=== PATIENT | male | born 1940 | race Caucasian/White ===

== ENCOUNTER 2019-11-07 09:48 | Day surgery (SDC) | payer MEDICARE, OTHER ==
[~2019-11-07 09:48] MED LIST: Cefuroxime 10 MG/ML SYRINGE EYERT SCH; Lidocaine 1% PF 2 ML SDV INJECT SCH; Pilocarpine 4% Ophth Soln 15 ML Bot EYERT SCH
[2019-11-07] MEDS: Polymyxin B/Trimethoprim 10 ML Bottle EYERT SCH ×3 (10:40→12:45)
[2019-11-07] MEDS: Brimonidine 0.2% Ophth Soln 5 ML Bottle EYERT SCH ×3 (10:46→12:45)
[2019-11-07] MEDS: Phenylephrine 2.5% Ophth Soln 2 ML Bot EYERT SCH ×5 (10:53→12:17)
[2019-11-07] MEDS: Tropicamide 1% Ophth Soln 15 ML Bottle EYERT SCH ×4 (10:58→11:52)
[2019-11-07] MEDS: Tetracaine HCl/PF 0.5% 4 ML Bottle EYERT SCH ×2 (11:59→12:30)
--- NOTE | 2019-11-07 12:24 | PCM48HPAN ---
Post Anesthesia Note - EVALUATION WITHIN 48HRS OF ANESTHETIC Vital Signs in Normal Range: Yes Patient Participated in Evaluation: Yes Respiratory Function Stable: Yes Airway Patent: Yes Cardiovascular Function Stable: Yes Hydration Status Stable: Yes Pain Control Satisfactory: Yes Nausea and Vomiting Control Satisfactory: Yes Mental Status Recovered: Yes Vital Signs: Last Vital Signs Temp 36.3 C 11/07/19 10:27 Pulse 64 11/07/19 10:27 Resp 16 11/07/19 10:27 BP 161/83 H 11/07/19 10:27 Pulse Ox 96 11/07/19 10:27
[2019-11-07 13:02] VITALS: BP 150/83; PULSE 59
== END 2019-11-07 12:54 | disposition home or self-care (01) ==
LOC: JD.SDS 09:48
PROVIDERS: ATTEND Ophthalmology
DX: H25.811 Combined forms of age-related cataract, right eye (principal); H21.81 Floppy iris syndrome; H21.41 Pupillary membranes, right eye; H43.813 Vitreous degeneration, bilateral; H16.223 Keratoconjunctivitis sicca, not specified as Sjogren's, bilateral; H16.103 Unspecified superficial keratitis, bilateral; E78.00 Pure hypercholesterolemia, unspecified; M19.90 Unspecified osteoarthritis, unspecified site; Z96.1 Presence of intraocular lens; Z79.899 Other long term (current) drug therapy; Z91.018 Allergy to other foods
CPT/HCPCS: 66982; J0697; J2001; C1780

== ENCOUNTER 2020-04-20 14:59 | Emergency (ER) | payer MEDICARE, OTHER ==
[2020-04-20 15:21] VITALS: BP 165/84; PULSE 66
--- NOTE | 2020-04-20 16:13 | EDM.PDOC ---
ED HPI GENERAL MEDICAL PROBLEM - General Chief Complaint: Syncope Stated Complaint: SYNCOPE Time Seen by Provider: 04/20/20 15:55 Source of Information: Reports: Patient History Limitations: Reports: No Limitations - History of Present Illness INITIAL COMMENTS - FREE TEXT/NARRATIVE: 79-year-old male presents to the ED after suffering presumably a syncopal event at home. He states he was bending over weeding parts of his garden and backyard when he awoke on his left side on the ground.He believes he was unresponsive for less than 30 seconds. However there was no witnesses to the syncopal event. He has no recollection of how he got to the ground. He states for the last 2 years he has been experiencing dizzy episodes which have a component of vertigo or spinning off kilter sensation. He has never had a true syncopal event ever before. He is getting headaches on a daily basis. He is believes it is coming from his cervical spine. No associated nausea vomiting and his appetite remains good and his weight is stable. He never feels any palpitations or skipping or racing of his heart. He is on thyroid replacement hormone. He is also on medication for high cholesterol. His blood pressure has been elevated systolically over the last 4 to 6 months. It is usually in the 150s when he takes it at home. Once it was as high as 191. He is not on any antihypertensive medications. No known heart conditions. He is never felt any palpitations or racing heart. He states he does not feel any pain from syncopal event and landing on the ground. He reports that he has to get up slowly from a seated or lying down position as he will get dizzy. He is careful in this regard. Onset: Today (Event occurred today. But he has been feeling offkilter with gradually worsening headaches for the last 2 years.) Onset Date: 04/20/20 (Call event occurred today.) Onset Time: 15:05 Duration: Minutes: Location: Reports: Generalized (Very bouts of dizziness/vertigo symptoms.) Quality: Reports: Other (Recurrent bouts of dizziness lightheadedness with a syncopal event today.) Severity: Moderate Improves with: Reports: Rest Worsens with: Reports: Other Context: Denies: Activity (Empty him seem to occur with positional changes.), Exercise, Lifting, Sick Contact, Trauma, Other Associated Symptoms: Reports: No Other Symptoms Treatments APPLICATION DEVELOPMENT SPECIALIST: Reports: Other (see below) (1.) - Related Data Allergies Allergy/AdvReac Type Severity Reaction Status Date / Time No Known Allergies Allergy Verified 04/20/20 15:21 Home Meds: Home Meds Colchicine [Colcrys] 0.6 mg PO DAILY PRN 10/09/19 [History] Finasteride 5 mg PO DAILY 10/09/19 [History] Levothyroxine [Synthroid] 100 mcg PO DAILY 10/09/19 [History] Pantoprazole Sodium [Protonix] 40 mg PO DAILY 10/09/19 [History] Pitavastatin Calcium [Livalo] 2 mg PO DAILY 10/09/19 [History] Past Medical History HEENT History: Reports: Hard of Hearing Cardiovascular History: Reports: High Cholesterol Gastrointestinal History: Reports: Fatty Liver Genitourinary History: Reports: BPH (And is on finasteride for his prostate.) Musculoskeletal History: Reports: Arthritis, Gout (Ask colchicine daily.) Psychiatric History: Reports: Anxiety Endocrine/Metabolic History: Reports: Hypothyroidism - Past Surgical History Musculoskeletal Surgical History: Reports: Other (See Below) (She has had multiple shoulder surgeries. Bilateral rotator cuff repairs and he believes once for a fracture in the right shoulder.) Social & Family History - Tobacco Use Smoking Status *Q: Never Smoker - Caffeine Use Caffeine Use: Reports: Coffee - Recreational Drug Use Recreational Drug Use: No - Living Situation & Occupation Living situation: Reports: Occupation: Employed (Self-employed) ED ROS GENERAL - Review of Systems Review Of Systems: See Below Constitutional: Reports: Other (Is stable). Denies: Fever, Chills, Malaise, Weakness, Fatigue, Night Sweats HEENT: Reports: Glasses, Vertigo, Other (No humming ringing or buzzing in his ears. Is slowly losing his hearing.) Respiratory: Reports: No Symptoms Cardiovascular: Reports: No Symptoms Endocrine: Reports: Fatigue (She gets fatigued and plays out within 3 to 4 minutes where he would usually able to be work for hours.) GI/Abdominal: Reports: No Symptoms. Denies: Constipation, Diarrhea : Reports: Frequency, Other (Treated once or twice nightly on finasteride for his prostate) Musculoskeletal: Reports: No Symptoms Skin: Reports: No Symptoms Neurological: Reports: Dizziness, Headache, Syncope (Couple event occurred today see history of present illness). Denies: Confusion, Numbness, Tingling ( Almost every day he is getting a headache. He believes is coming from his neck. ), Trouble Speaking, Difficulty Walking, Change in Speech, Gait Disturbance Psychiatric: Reports: No Symptoms Hematologic/Lymphatic: Reports: No Symptoms Immunologic: Reports: No Symptoms - Physical Exam Exam: See Below Exam Limited By: No Limitations General Appearance: Alert, WD/WN, No Apparent Distress, Other (Temperature is 36.0. Pulse is 66 in sinus respiratory to 20 BP is 1 6584 but came down to 145/ 82. Pulse ox 98% on room air.) Eye Exam: Bilateral Eye: Normal Inspection, PERRL Throat/Mouth: Normal Inspection, Normal Lips, Normal Teeth, Normal Oropharynx Head Exam: Atraumatic, Normocephalic Neck: Normal Inspection, Limited Range of Motion (Some crepitus on lateral rotation of his cervical spine with limits of range of motion with loss of 5 degrees flexion 10 degrees extension and 10 degrees lateral flexion bilaterally. ). No: Carotid Bruit, Lymphadenopathy (L), Lymphadenopathy (R), Thyromegaly Respiratory/Chest: No Respiratory Distress, Lungs Clear, Normal Breath Sounds, No Accessory Muscle Use, Chest Non-Tender Cardiovascular: Normal Peripheral Pulses, Regular Rate, Rhythm, No Edema, No Murmur, No Rub GI/Abdominal: Normal Bowel Sounds, Soft, Non-Tender, No Organomegaly, No Abnormal Bruit, Other (No surgical scars.) Neuro Exam (Abbreviated): Alert, Oriented, CN II-XII Intact, Normal Cognition, Normal Gait, Abnormal Reflexes (Patient is areflexic he is areflexic.), Other ( No pronator drift. [id number] assessment was normal. Rapid alternating movements are normal). No: Slow to Respond, Unresponsive DTR: 0: Bicep (R), Bicep (L), Patella (R), Patella (L), Achilles (R), Achilles ( L) Back Exam: Normal Inspection, Full Range of Motion. No: CVA Tenderness (L), CVA Tenderness (R) Extremities: Normal Inspection, Normal Range of Motion, Non-Tender, No Pedal Edema Psychiatric: Normal Affect, Normal Mood Skin Exam: Warm, Dry, Intact, Normal Color, No Rash EKG INTERPRETATION EKG Date: 04/20/20 Time: 16:40 Rhythm: Other (Sinus bradycardia at 56/min) Rate (Beats/Min): 56 [place]: Normal P-Wave: Present QRS: Other (Mildly decreased voltage precordial leads.) ST-T: Normal QT: Normal Course - Vital Signs Last Recorded V/S: Last Vital Signs Temp 36.0 C L 04/20/20 15:16 Pulse 66 04/20/20 15:16 Resp 20 04/20/20 15:16 BP 165/84 H 04/20/20 15:16 Pulse Ox 98 04/20/20 15:16 Orthostatic Blood Pressure [ 177/86 Standing] Orthostatic Blood Pressure [ 162/84 Sitting] Orthostatic Blood Pressure [ 171/73 Supine] - Orders/Labs/Meds Orders: Active Orders 24 hr Category Date Time Status EKG Documentation Completion [RC] STAT Care 04/20/20 16:11 Active Holter Monitor 48 Hours [RC] .PRN Care 04/20/20 18:03 Active Orthostatic Vital Signs [RC] ASDIRECTED Care 04/20/20 17:17 Active Labs: Laboratory Tests 04/20/20 04/20/20 04/20/20 Range/Units 16:32 16:32 16:32 WBC 5.16 (4.23-9.07) K/mm3 RBC 4.56 L (4.63-6.08) M/mm3 Hgb 13.9 (13.7-17.5) gm/dl Hct 42.1 (40.1-51.0) % MCV 92.3 H (79.0-92.2) fl MCH 30.5 (25.7-32.2) pg MCHC 33.0 (32.2-35.5) g/dl RDW Std Deviation 43.1 (35.1-43.9) fL Plt Count 181 (163-337) K/mm3 MPV 10.0 (9.4-12.3) fl Neut % (Auto) 58.5 (34.0-67.9) % Lymph % (Auto) 27.1 (21.8-53.1) % [place] % (Auto) 10.9 (5.3-12.2) % Eos % (Auto) 2.7 (0.8-7.0) Baso % (Auto) 0.4 (0.1-1.2) % Neut # (Auto) 3.02 (1.78-5.38) K/mm3 Lymph # (Auto) 1.40 (1.32-3.57) K/mm3 [place] # (Auto) 0.56 (0.30-0.82) K/mm3 Eos # (Auto) 0.14 (0.04-0.54) K/mm3 Baso # (Auto) 0.02 (0.01-0.08) K/mm3 ESR 22 H (0-15) mm/hr Sodium 143 (136-145) mEq/L Potassium 3.8 (3.5-5.1) mEq/L Chloride 109 H (98-107) mEq/L Carbon Dioxide 26 (21-32) mEq/L Anion Gap 11.8 (5-15) BUN 23 H (7-18) mg/dL Creatinine 1.6 H (0.7-1.3) mg/dL Est Cr Clr Drug Dosing 33.63 mL/min Estimated GFR (MDRD) 42 (>60) mL/min BUN/Creatinine Ratio 14.4 (14-18) Glucose 99 (83-115) mg/dL Calcium 8.9 (8.5-10.1) mg/dL Magnesium 2.2 (1.8-2.4) mg/dl Total Bilirubin 0.9 (0.2-1.0) mg/dL AST 28 (15-37) U/L ALT 34 (16-63) U/L Alkaline Phosphatase 63 (46-116) U/L Troponin I < 0.017 (0.00-0.056) ng/mL C-Reactive Protein <0.2 (<1.0) mg/dL NT-Pro-B Natriuret Pep (0-450) pg/mL Total Protein 7.0 (6.4-8.2) g/dl Albumin 3.3 L (3.4-5.0) g/dl Globulin 3.7 gm/dL Albumin/Globulin Ratio 0.9 L (1-2) TSH 3rd Generation 1.721 (0.358-3.74) uIU/mL Urine Color (Yellow) Urine Appearance (Clear) Urine pH (5.0-8.0) Ur Specific [place] (1.005-1.030) Urine Protein (Negative) Urine Glucose (UA) (Negative) Urine Ketones (Negative) Urine Occult Blood (Negative) Urine Nitrite (Negative) Urine Bilirubin (Negative) Urine Urobilinogen (0.2-1.0) Ur Leukocyte Esterase (Negative) Urine RBC (0-5) /hpf Urine WBC (0-5) /hpf Ur Squamous Epith Cells (0-5) /hpf Urine Bacteria (FEW) /hpf Urine Mucus (FEW) /hpf 04/20/20 04/20/20 Range/Units 16:32 16:35 WBC (4.23-9.07) K/mm3 RBC (4.63-6.08) M/mm3 Hgb (13.7-17.5) gm/dl Hct (40.1-51.0) % MCV (79.0-92.2) fl MCH (25.7-32.2) pg MCHC (32.2-35.5) g/dl RDW Std Deviation (35.1-43.9) fL Plt Count (163-337) K/mm3 MPV (9.4-12.3) fl Neut % (Auto) (34.0-67.9) % Lymph % (Auto) (21.8-53.1) % [place] % (Auto) (5.3-12.2) % Eos % (Auto) (0.8-7.0) Baso % (Auto) (0.1-1.2) % Neut # (Auto) (1.78-5.38) K/mm3 Lymph # (Auto) (1.32-3.57) K/mm3 [place] # (Auto) (0.30-0.82) K/mm3 Eos # (Auto) (0.04-0.54) K/mm3 Baso # (Auto) (0.01-0.08) K/mm3 ESR (0-15) mm/hr Sodium (136-145) mEq/L Potassium (3.5-5.1) mEq/L Chloride (98-107) mEq/L Carbon Dioxide (21-32) mEq/L Anion Gap (5-15) BUN (7-18) mg/dL Creatinine (0.7-1.3) mg/dL Est Cr Clr Drug Dosing mL/min Estimated GFR (MDRD) (>60) mL/min BUN/Creatinine Ratio (14-18) Glucose (83-115) mg/dL Calcium (8.5-10.1) mg/dL Magnesium (1.8-2.4) mg/dl Total Bilirubin (0.2-1.0) mg/dL AST (15-37) U/L ALT (16-63) U/L Alkaline Phosphatase (46-116) U/L Troponin I (0.00-0.056) ng/mL C-Reactive Protein (<1.0) mg/dL NT-Pro-B Natriuret Pep 154 (0-450) pg/mL Total Protein (6.4-8.2) g/dl Albumin (3.4-5.0) g/dl Globulin gm/dL Albumin/Globulin Ratio (1-2) TSH 3rd Generation (0.358-3.74) uIU/mL Urine Color Yellow (Yellow) Urine Appearance Clear (Clear) Urine pH 6.0 (5.0-8.0) Ur Specific [place] > or = 1.030 (1.005-1.030) Urine Protein Negative (Negative) Urine Glucose (UA) Negative (Negative) Urine Ketones Negative (Negative) Urine Occult Blood Negative (Negative) Urine Nitrite Negative (Negative) Urine Bilirubin Negative (Negative) Urine Urobilinogen 0.2 (0.2-1.0) Ur Leukocyte Esterase Negative (Negative) Urine RBC 0-5 (0-5) /hpf Urine WBC 0-5 (0-5) /hpf Ur Squamous Epith Cells 0-5 (0-5) /hpf Urine Bacteria Few (FEW) /hpf Urine Mucus Not seen (FEW) /hpf - Radiology Interpretation Free Text/Narrative:: 79-year-old male presents to the ED with a 2-year history of intermittent dizziness lightheadedness episodes which culminated in a syncopal episode today. He was bending over picking weeds out of his backyard when he found himself lying on his left side on the grass. He did not get hurt from the syncopal event. He just can remember how long he was out for but he believes was for very short duration of time. He has no cardiac history of arrhythmias. He never feels any palpitations or skips or racing heart. He has hypothyroid. He is also on finasteride and alpha lonny which may be causing sudden changes in blood pressure. Does appear to be mildly systolically hypertensive. Neuro exam is completely normal. He indicates that he is getting a headache almost every day which he blames on his cervical spine. He is aware that he has to get up carefully from the bed or his couch when he stands as he gets a little bit dizzy. Plan CT head to be done to rule out acoustic neuroma since he is losing some hearing and many symptoms of vertigo. ECG to be done. Routine labs including thyroid function as he is on thyroid replacement hormone. He reports that he simply has no energy. When he goes to work he can last an hour or so and then his plate out. Usually can work all day long and then still have energy to exercise. - Re-Assessments/Exams Free Text/Narrative Re-Assessment/Exam: 04/20/20 17:17 CT of the head has been completed. Ventricles along with basal cisterns and sulci over the convexities are mildly prominent consistent with the patient's age. Diminished density is noted within the periventricular white matter combined with small vessel ischemic demyelination changes. No other abnormal parenchymal densities are seen. No evidence of intracranial hemorrhage no midline shift or mass-effect is identified. Visualized mastoid sinuses and paranasal sinuses showed nothing acute. Orthostatic BPs show a supine blood pressure 1 7173 with a heart rate of 62. Sitting BP 162/84 with a heart rate of 61. Standing BP 177/86 with a heart rate of 65. No evidence of orthostasis. 04/20/20 17:22 Labs are back. White count is normal at 5.16. Auto differential shows 58.5% neutrophils. Hemoglobin is 13.9 with hematocrit of 42.1. Platelet counts 181,000. Sodium 143 with a potassium of 3.8. Chloride 109 with a bicarb of 26. Anion gap is 11.8. BUN is 23 with a creatinine of 1.6. Estimated GFR is 42. Glucose is 99 with a calcium of 8.9. Magnesium is 2.2 bilirubin is 0.9 liver function otherwise normal troponin I is less than 0.017. C-reactive protein less than 0.2. BNP is 154. Total protein 7.0 with an albumin fraction of 3.3. Urinalysis is completely normal. TSH is pending 04/20/20 18:03 TSH came back normal at 1.72 ESR is 22--mildy elevated. Plan I am going to have a Holter monitor placed for 48 hours to see if there is any bradyarrhythmias that would make him have a syncopal event. Of asked him to put his cholesterol-lowering medication on hold for a month to see if this improves his stamina and muscle strength since he seems to be very weak on minimal exertion which is totally atypical for him. I could not identify any specific reason for him to have a syncopal event. He does take his finasteride in the mornings. I have asked him to switch this to bedtime use in case the alpha blockade is causing transient hypotension. Blood pressure in the ED was elevated minimally around 145-150 systolically and it appears that he may well need a another antihypertensive medication such as an CARLEE or an ARB to control his blood pressure. To follow-up with Dr. Woodruff in clinic 3 days after the Holter monitor has been turned back in for analysis. Does have a component of vertigo but this should never result in a loss of consciousness. Departure - Departure Time of Disposition: 18:15 Disposition: Home, Self-Care 01 Condition: Fair Clinical Impression: Essential hypertension with goal blood pressure less than 140/90, Elevated blood pressure reading with diagnosis of hypertension Syncopal episodes Qualifiers: Syncope type: unspecified Qualified Code(s): R55 - Syncope and collapse - Discharge Information *PRESCRIPTION DRUG MONITORING PROGRAM REVIEWED*: Not Applicable *COPY OF PRESCRIPTION DRUG MONITORING REPORT IN PATIENT REID: Not Applicable Instructions: Syncope, [id number] Referrals: Nguyễn Osborn MD [Primary Care Provider] - Forms: ED Department Discharge Additional Instructions: Evaluation in the emergency room today in regards to a syncopal event that occurred in your backyard at home today. As you indicated you have not felt well for about 23 months where you experience transient dizziness/vertigo episodes but have never fainted before. As you indicated today were bent over picking weeds in the backyard when you awoke lying on your left side in the grass. Is unclear for how long you lost consciousness but it was likely very transient. No source or reason could be identified for this to have occurred well in the emergency room. In particular there was no arrhythmias or abnormalities on your ECG when you were monitored in the ED. CT of the brain is completely normal showing no lesions that would cause you to have a syncopal event. Thyroid function is okay at this time and you on appropriate amount of supplementation. I am going to suggest that you place your cholesterol lowering pill Livalo on hold for the next month and see if this does not improve your muscle function and stamina. Also I am going to suggest you switch your finasteride or Flomax tablet to bedtime or after supper use so that the blood pressure lowering effect does not occur during the daytime in case it is causing transient lower blood pressure. However overall your blood pressure is slightly elevated while in the emergency department and I suspect you are going to need further blood pressure control with alternative medication but I will leave this up to Dr. Osborn. Please make an appointment to see Dr. Osborn 3 days after your Holter monitor is turned in as evaluation of the monitor should be available at that time likely about next week Monday. Of course return to the ED if you have any further similar events. Sepsis Event Note - Evaluation Sepsis Screening Result: No Definite Risk - Focused Exam Vital Signs: Vital Signs Temp Pulse Resp BP Pulse Ox 04/20/20 15:16 36.0 C L 66 20 165/84 H 98 Date Exam was Performed: 04/20/20 Time Exam was Performed: 18:22 - My Orders Last 24 Hours: My Active Orders 04/20/20 16:11 EKG Documentation Completion [RC] STAT 04/20/20 17:17 Orthostatic Vital Signs [RC] ASDIRECTED 04/20/20 18:03 Holter Monitor 48 Hours [RC] .PRN - Assessment/Plan Last 24 Hours: My Active Orders 04/20/20 16:11 EKG Documentation Completion [RC] STAT 04/20/20 17:17 Orthostatic Vital Signs [RC] ASDIRECTED 04/20/20 18:03 Holter Monitor 48 Hours [RC] .PRN
--- NOTE | 2020-04-20 16:53 | CT ---
Head CT Technique: Multiple axial sections through the brain were obtained. Intravenous contrast was not utilized. Comparison: Prior head CT study of 02/04/15. Findings: Ventricles along with basal cisterns and sulci over the convexities are mildly prominent. Diminished density is noted within the periventricular white matter compatible with small vessel ischemic demyelination change. No other abnormal parenchymal densities are seen. No evidence of intracranial hemorrhage. No midline shift or mass-effect is seen. Bone window settings were reviewed. No acute calvarial finding is seen. Visualized mastoid sinuses and paranasal sinuses show nothing acute. Impression: 1. Senescent change as described above. 2. No acute intracranial abnormality is appreciated. Diagnostic code #2 This report was dictated in MDT
== END 2020-04-20 18:28 | disposition home or self-care (01) ==
LOC: JD.ED 14:59
DX: I10 Essential (primary) hypertension (principal); E03.9 Hypothyroidism, unspecified; E78.00 Pure hypercholesterolemia, unspecified; N40.0 Benign prostatic hyperplasia without lower urinary tract symptoms; M10.9 Gout, unspecified; Z79.899 Other long term (current) drug therapy
CPT/HCPCS: 36415; 70450; 70450-26; 80053; 81001; 83735; 83880; 84443; 84484; 85025; 85652; 86140; 93005; 93010; 93225; 93226; 99283; 99284-25

== ENCOUNTER 2021-06-11 14:43 | Emergency (ER) | payer MEDICARE, OTHER ==
[2021-06-11 14:55] VITALS: BP 152/80; PULSE 66
[2021-06-11] MEDS ORDERED: Sodium Chloride 0.9% 1,000 ML IV ONE (15:21)
--- NOTE | 2021-06-11 15:21 | EDM.PDOC ---
ED HPI GENERAL MEDICAL PROBLEM - General Chief Complaint: Neuro Symptoms/Deficits Stated Complaint: DIZZY X4 days Time Seen by Provider: 06/11/21 15:01 Source of Information: Reports: Patient, Old Records, RN Notes Reviewed History Limitations: Reports: No Limitations - History of Present Illness INITIAL COMMENTS - FREE TEXT/NARRATIVE: Patient is a 80-year-old male who presents to the ER for his ongoing dizziness. Patient states this has been ongoing for the last for 5 days, he gets sporadic episodes of feeling unsteady on his feet. Noticed it about 4 days ago, when he was taking a walk, about a half a [address] from his house, when he began to feel exquisitely dizzy. States he did not have a fall, or pass out or any syncopal issues. He does have a history of MS as well but notes that his provider in [place] has been watching his disease closely and has not noticed any changes. He has not been started on any recent medications nor has he had any recent med changes. Denying any other sick-like symptoms fevers or chills, cough/shortness of breath, nausea/vomiting/diarrhea. Patient states that he has been having issues with ongoing fatigue, states that when he sits down in the easy chair, he can nod off in about [address] Osborn. Patient denies any sort of lightheaded feeling, or major positional changes, he states that when he is walking he just feels like he is off kilter. - Related Data Allergies Allergy/AdvReac Type Severity Reaction Status Date / Time No Known Allergies Allergy Verified 06/11/21 14:55 Home Meds: Home Meds Colchicine [Colcrys] 0.6 mg PO DAILY PRN 10/09/19 [History] Finasteride 5 mg PO DAILY 10/09/19 [History] Levothyroxine [Synthroid] 100 mcg PO DAILY 10/09/19 [History] Pantoprazole Sodium [Protonix] 40 mg PO DAILY 10/09/19 [History] Pitavastatin Calcium [Livalo] 2 mg PO DAILY 10/09/19 [History] Past Medical History HEENT History: Reports: Hard of Hearing, Other (See Below) Other HEENT History: dizziness Cardiovascular History: Reports: High Cholesterol Gastrointestinal History: Reports: Fatty Liver, GERD Genitourinary History: Reports: BPH Musculoskeletal History: Reports: Arthritis, Gout Neurological History: Reports: MS Psychiatric History: Reports: Anxiety Endocrine/Metabolic History: Reports: Hypothyroidism - Past Surgical History Musculoskeletal Surgical History: Reports: Other (See Below) (He has had multiple shoulder surgeries. Bilateral rotator cuff repairs and he believes once for a fracture in the right shoulder.) Social & Family History - Tobacco Use Tobacco Use Status *Q: Never Tobacco User - Caffeine Use Caffeine Use: Reports: None - Recreational Drug Use Recreational Drug Use: No - Living Situation & Occupation Living situation: Reports: Occupation: Employed (Self-employed) ED ROS GENERAL - Review of Systems Review Of Systems: Comprehensive ROS is negative, except as noted in HPI. ED EXAM, NEURO - Physical Exam Exam: See Below Exam Limited By: No Limitations General Appearance: Alert, WD/WN, No Apparent Distress Eye Exam: Bilateral Eye: EOMI, Normal Inspection, PERRL Respiratory/Chest: No Respiratory Distress, Lungs Clear, Normal Breath Sounds, No Accessory Muscle Use, Chest Non-Tender Cardiovascular: Normal Peripheral Pulses, Regular Rate, Rhythm, No Edema GI/Abdominal: Normal Bowel Sounds, Soft, Non-Tender, No Distention, No Mass Neurological: Alert, Normal Mood/Affect, CN II-XII Intact (grossly), No Motor/Sensory Deficits, Oriented x 3 Extremities: Normal Inspection, Normal Capillary Refill Psychiatric: Normal Affect, Normal Mood Skin Exam: Warm, Dry, Intact, Normal Color, No Rash Course - Vital Signs Last Recorded V/S: Last Vital Signs Temp 96.2 F L 06/11/21 14:52 Pulse 66 06/11/21 14:52 Resp 16 06/11/21 14:52 BP 152/80 H 06/11/21 14:52 Pulse Ox 99 06/11/21 14:52 - Orders/Labs/Meds Labs: Laboratory Tests 06/11/21 06/11/21 Range/Units 14:54 14:54 WBC 4.95 (4.23-9.07) K/mm3 RBC 4.58 L (4.63-6.08) M/mm3 Hgb 14.3 (13.7-17.5) gm/dl Hct 41.8 (40.1-51.0) % MCV 91.3 (79.0-92.2) fl MCH 31.2 (25.7-32.2) pg MCHC 34.2 (32.2-35.5) g/dl RDW Std Deviation 43.5 (35.1-43.9) fL Plt Count 180 (163-337) K/mm3 MPV 9.9 (9.4-12.3) fl Neut % (Auto) 55.2 (34.0-67.9) % Lymph % (Auto) 27.7 (21.8-53.1) % Walker % (Auto) 12.5 H (5.3-12.2) % Eos % (Auto) 3.6 (0.8-7.0) Baso % (Auto) 0.6 (0.1-1.2) % Neut # (Auto) 2.73 (1.78-5.38) K/mm3 Lymph # (Auto) 1.37 (1.32-3.57) K/mm3 Walker # (Auto) 0.62 (0.30-0.82) K/mm3 Eos # (Auto) 0.18 (0.04-0.54) K/mm3 Baso # (Auto) 0.03 (0.01-0.08) K/mm3 Sodium 142 (136-145) mEq/L Potassium 3.9 (3.5-5.1) mEq/L Chloride 109 H (98-107) mEq/L Carbon Dioxide 25 (21-32) mEq/L Anion Gap 11.9 (5-15) BUN 23 H (7-18) mg/dL Creatinine 1.6 H (0.7-1.3) mg/dL Est Cr Clr Drug Dosing 33.10 mL/min Estimated GFR (MDRD) 42 (>60) mL/min BUN/Creatinine Ratio 14.4 (14-18) Glucose 116 H (70-99) mg/dL Calcium 8.5 (8.5-10.1) mg/dL Total Bilirubin 0.9 (0.2-1.0) mg/dL AST 30 (15-37) U/L ALT 43 (16-63) U/L Alkaline Phosphatase 63 (46-116) U/L Total Protein 7.2 (6.4-8.2) g/dl Albumin 3.4 (3.4-5.0) g/dl Globulin 3.8 gm/dL Albumin/Globulin Ratio 0.9 L (1-2) Meds: Medications Discontinued Medications Generic Name Dose Route Start Last Admin Trade Name Omar PRN Reason Stop Dose Admin Sodium Chloride 1,000 mls @ 999 mls/hr 06/11/21 15:21 06/11/21 15:31 Normal Saline IV 06/11/21 16:21 999 mls/hr ONETIME ONE Administration Meclizine HCl 25 mg 06/11/21 15:22 06/11/21 15:31 Meclizine 25 Mg Tab.Chew PO 06/11/21 15:23 25 mg ONETIME ONE Administration - Re-Assessments/Exams Free Text/Narrative Re-Assessment/Exam: 06/11/21 15:22 Patient presents to the ER for evaluation of his dizziness, this has happened to the gentleman before a few years ago, and he did have a syncopal episode last year with similar symptoms. We had gotten an IV started at the time of triage, and I will order basic labs, we will go ahead and give him some IV fluids, and try a dose of oral meclizine to see if this helps his unsteady feelings. 06/11/21 15:32 Patient's labs have resulted, and are fairly unremarkable, creatinine is 1.6, GFR is 42, which seems to be on par for labs as compared to last year. None theless we will go ahead and give a bolus of fluids and try meclizine as stated above to see if this helps a little bit we will go ahead and get him up and walking after fluids and meclizine to see if this helps. 06/11/21 16:17 Patient was reassessed at bedside, states he is not move much, so he is not sure if he is feeling much better. We will have nursing staff ambulate him around the ER to see if this helps relieve some of his dizziness or unsteady feelings. Departure - Departure Time of Disposition: 16:17 Disposition: Home, Self-Care 01 Condition: Good Clinical Impression: Dizziness of unknown etiology - Discharge Information *PRESCRIPTION DRUG MONITORING PROGRAM REVIEWED*: No *COPY OF PRESCRIPTION DRUG MONITORING REPORT IN PATIENT REID: No Instructions: Dizziness, [id number] Referrals: Nguyễn Osborn MD [Primary Care Provider] - Forms: ED Department Discharge Additional Instructions: You were evaluated in the ER today for your unsteadiness/dizziness. Laboratory evaluation done at today's visit was unremarkable. There is no specific trigger identified at today's visit as to what would be causing your dizziness/unsteadiness. It is thought likely due to slight dehydration. Please try to increase your oral fluid intake, with fluids like Gatorade/Powerade or Pedialyte for ongoing management. When you are walking around, please get up slowly to help acclimate your body to the positional changes, and walk around a little more slowly, until you feel more steady and the dizziness improved. Highly suggest use of a cane, or walker over the next few days as well, if you are feeling unsteady on her feet, to prevent any falls. You may try low-dose meclizine or Antivert, this is a medication that can be bought [id number], as typically by the [facility] and the medication area. Recommend you take 1/2-1 full tablet every 4 hours as needed for ongoing dizziness symptoms. When it is extremely hot outside, please try to limit time outdoors to help further provide relief from too much water loss or dehydration. Recommend you follow-up with your regular care provider as needed for ongoing management of your general health. As always do not hesitate to return to the ER at any time if your symptoms should change or worsen. Sepsis Event Note (ED) - Evaluation Sepsis Screening Result: No Definite Risk - Focused Exam Vital Signs: Vital Signs Temp Pulse Resp BP Pulse Ox 06/11/21 14:52 96.2 F L 66 16 152/80 H 99
== END 2021-06-11 16:32 | disposition home or self-care (01) ==
LOC: JD.ED 14:43
DX: R42 Dizziness and giddiness (principal); E78.00 Pure hypercholesterolemia, unspecified; K21.9 Gastro-esophageal reflux disease without esophagitis; E03.9 Hypothyroidism, unspecified; Z79.899 Other long term (current) drug therapy
CPT/HCPCS: 36415; 80053; 85025; 99284; A9270; J7030; 99283

== ENCOUNTER 2021-08-09 08:22 | Emergency (ER) | payer MEDICARE, OTHER ==
[2021-08-09 09:00] VITALS: BP 138/70; PULSE 64
--- NOTE | 2021-08-09 09:03 | EDM.PDOC ---
ED HPI GENERAL MEDICAL PROBLEM - General Chief Complaint: Upper Extremity Injury/Pain Stated Complaint: RIGHT HAND FINGERS TINGLING Time Seen by Provider: 08/09/21 09:03 Source of Information: Reports: Patient History Limitations: Reports: No Limitations - History of Present Illness INITIAL COMMENTS - FREE TEXT/NARRATIVE: 81-year-old male attends the ED with complaints of weakness and pain in his right upper extremity. He identifies that clenching his fist causes pain in the lateral aspect of his elbow and its painful to lift the arm as well. He appreciates numbness and tingling in his hand particular in the distribution of the third and second fingertips. He has a positive Tinel's sign and has heard about carpal tunnel syndrome before. No recent injuries or falls. He was concerned about possibility of stroke causing his numbness and tingling and weakness. Onset: Gradual Onset Date: 07/30/21 (Has had symptoms of right wrist arm pain for about 10 days) Duration: Day(s):, Getting Worse Location: Reports: Upper Extremity, Right (Pain right lateral elbow), Other (. Numbness and tingling in the distribution of the median nerve right hand particular involving the second and third digits) Quality: Reports: Ache (Ache primarily right lateral elbow) Severity: Moderate Improves with: Reports: None Worsens with: Reports: Other (Worsens with clenching his fist and pushing himself up from a surface such as his bed.) Context: Reports: Other (Spontaneous occurrence). Denies: Activity, Exercise, Lifting, Sick Contact, Trauma Associated Symptoms: Reports: No Other Symptoms. Denies: Confusion, Chest Pain, Cough, cough w sputum, Diaphoresis, Fever/Chills, Headaches, Loss of Appetite, Malaise, Nausea/Vomiting, Seizure, Shortness of Breath, Syncope Treatments ENGINE SETTER: Reports: Other (see below) Right Elbow Pain Score (Numeric/FACES): 2 - Related Data Allergies Allergy/AdvReac Type Severity Reaction Status Date / Time No Known Allergies Allergy Verified 08/09/21 09:00 Home Meds: Home Meds Colchicine [Colcrys] 0.6 mg PO DAILY PRN 10/09/19 [History] Finasteride 5 mg PO DAILY 10/09/19 [History] Levothyroxine [Synthroid] 100 mcg PO DAILY 10/09/19 [History] Pantoprazole Sodium [Protonix] 40 mg PO DAILY 10/09/19 [History] Pitavastatin Calcium [Livalo] 1 mg PO DAILY 10/09/19 [History] Diclofenac Sodium [Voltaren] 50 mg PO BID #24 tab.ec 08/09/21 [Rx] predniSONE 20 mg PO ASDIRECTED #15 tab 08/09/21 [Rx] Past Medical History HEENT History: Reports: Hard of Hearing, Other (See Below) Other HEENT History: dizziness Cardiovascular History: Reports: High Cholesterol Gastrointestinal History: Reports: Fatty Liver, GERD Genitourinary History: Reports: BPH Musculoskeletal History: Reports: Arthritis, Gout Neurological History: Reports: MS Psychiatric History: Reports: Anxiety Endocrine/Metabolic History: Reports: Hypothyroidism - Past Surgical History Musculoskeletal Surgical History: Reports: Other (See Below) (He has had multiple shoulder surgeries. Bilateral rotator cuff repairs and he believes once for a fracture in the right shoulder.) Social & Family History - Caffeine Use Caffeine Use: Reports: None - Living Situation & Occupation Living situation: Reports: Occupation: Employed (Self-employed) Review of Systems - Review of Systems Review Of Systems: See Below Constitutional: Reports: No Symptoms Eyes: Reports: Glasses Ears: Reports: No Symptoms Nose: Reports: No Symptoms Mouth/Throat: Reports: No Symptoms Respiratory: Reports: No Symptoms Cardiovascular: Reports: No Symptoms GI/Abdominal: Reports: No Symptoms Genitourinary: Reports: Other (Nocturia x3. Urinary frequency) Musculoskeletal: Reports: Joint Pain (Mild joint pain shoulders neck low back and knees) Skin: Reports: No Symptoms Neurological: Reports: Numbness (Right wrist and second and third fingers comply with carpal tunnel syndrome), Tingling (Right hand). Denies: Confusion, Dizziness, Headache Psychiatric: Reports: No Symptoms ED EXAM, GENERAL - Physical Exam Exam: See Below Exam Limited By: No Limitations General Appearance: Alert, WD/WN, Anxious, Mild Distress, Other (Temperature is 36.0 with heart rate 64 and sinus. Respiratory 16 BP 138/70 O2 sats 98% room air) Peripheral Pulses: 2+: Radial (L), Radial (R) Extremities: No Pedal Edema, Other (Examination of his right upper extremity reveals pain over the lateral epicondyles combined with tennis elbow. He has a positive Tinel's sign at his right wrist compared with carpal tunnel syndrome. He therefore has 2 problems causing numbness and weakness in his right upper extremity. ). No: Pedal Edema Neurological: Alert, Oriented, CN II-XII Intact, Normal Cognition, Normal Gait, Sensory/Motor Deficit (Sensory deficit involving the distribution of the right median nerve particular involving his second and third fingers compared with carpal tunnel syndrome) Psychiatric: Normal Affect, Normal Mood Skin Exam: Warm, Dry, Intact, Normal Color, No Rash Course - Vital Signs Last Recorded V/S: Last Vital Signs Temp 36.0 C L 08/09/21 08:56 Pulse 64 08/09/21 08:56 Resp 16 08/09/21 08:56 BP 138/70 08/09/21 08:56 Pulse Ox 98 08/09/21 08:56 - Radiology Interpretation Free Text/Narrative:: 81-year-old male presents to the ED for evaluation of right upper extremity numbness tingling and weakness. It has been going on for about 10 days. 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 He also has evidence of carpal tunnel syndrome causing numbness and tingling in his right hand with a positive Tinel's sign. I am going to treat him with prednisone 20 mg by mouth twice daily for 5 days with meals then once daily in the morning for another 5 days. Also Voltaren 50 mg twice daily morning and supper for 12 days to relieve pain and inflammation. He is already on Protonix 40 mg daily for GI protection. Advised follow-up with Dr. Thao orthopedic surgeon whom he has seen many times in the past. Departure - Departure Time of Disposition: 09:33 Disposition: Home, Self-Care 01 Condition: Fair Clinical Impression: Carpal tunnel syndrome of right wrist Lateral epicondylitis (tennis elbow) Qualifiers: Laterality: right Qualified Code(s): M77.11 - Lateral epicondylitis, right elbow - Discharge Information *PRESCRIPTION DRUG MONITORING PROGRAM REVIEWED*: Not Applicable *COPY OF PRESCRIPTION DRUG MONITORING REPORT IN PATIENT REID: Not Applicable Prescriptions: predniSONE 20 mg PO ASDIRECTED #15 tab Diclofenac Sodium [Voltaren] 50 mg PO BID #24 tab.ec Instructions: Tennis Elbow, Carpal Tunnel Syndrome Referrals: Nguyễn Osborn MD [Primary Care Provider] - Forms: ED Department Discharge Additional Instructions: Evaluation in the emergency room today in regards to weakness and pain and numbness and tingling right upper extremity primarily in the hand in the distribution of the third and second fingers primarily in pain lateral right elbow. Examination reveals that you have lateral epicondylitis or tennis elbow causing increased pain with contraction of your hand as the muscles on the extensor surface of the forearm insert into the lateral epicondyle. As you indicated you would have pain pushing up from the bed or from a table etc. 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 There is no clinical evidence of stroke. Suggest trial of medication to reduce pain and inflammation in both areas. Prednisone 20 mg by mouth twice daily morning and supper with meals for 5 days and then 1 tab in the morning only for another 5 days and similarly Voltaren 50 mg twice daily for 12 days to reduce pain and inflammation for it. Suggest making appointment to see Dr. Thao orthopedic surgeon. Both areas could be injected with steroid to reduce pain and inflammation if the above medication does not work. His phone number to arrange an appointment is [phone]. Sepsis Event Note (ED) - Focused Exam Vital Signs: Vital Signs Temp Pulse Resp BP Pulse Ox 08/09/21 08:56 36.0 C L 64 16 138/70 98
== END 2021-08-09 09:41 | disposition home or self-care (01) ==
LOC: JD.ED 08:22
DX: G56.01 Carpal tunnel syndrome, right upper limb (principal); M77.11 Lateral epicondylitis, right elbow; K21.9 Gastro-esophageal reflux disease without esophagitis; M10.9 Gout, unspecified; E03.9 Hypothyroidism, unspecified; Z79.899 Other long term (current) drug therapy
CPT/HCPCS: 99283

== ENCOUNTER 2022-04-22 16:13 | Emergency (ER) | payer MEDICARE, OTHER ==
[2022-04-22 16:36] VITALS: BP 147/84; PULSE 77
[2022-04-22 17:47] LABS: ESTIMATED GFR 45 mL/min (>60)
[2022-04-22] MEDS ORDERED: Ondansetron 4 MG Tab.DIS PO ONE (18:38)
== END 2022-04-22 19:23 | disposition home or self-care (01) ==
LOC: JD.ED 16:13
DX: G47.00 Insomnia, unspecified (principal); R11.2 Nausea with vomiting, unspecified; R09.81 Nasal congestion; E78.00 Pure hypercholesterolemia, unspecified; E03.9 Hypothyroidism, unspecified; K21.9 Gastro-esophageal reflux disease without esophagitis; Z79.899 Other long term (current) drug therapy; Z20.822 Contact with and (suspected) exposure to COVID-19
CPT/HCPCS: 36415; 70450; 80053; 83735; 84484; 85025; 86140; 93005; 99284; A9270; U0002; 99283

== ENCOUNTER 2023-07-12 07:25 | Day surgery (SDC) | payer MEDICARE, OTHER ==
[~2023-07-12 07:25] MED LIST changes: +Acetaminophen 325 MG Tab PO SCH; -Cefuroxime 10 MG/ML SYRINGE EYERT SCH; +Lactated Ringers 1,000 ML IV SCH; -Lidocaine 1% PF 2 ML SDV INJECT SCH; +Morphine 8 MG, EPINEPHrine 0.3 MG, Cefuroxime 750 MG, Ketorolac 30 MG, Sodium Chloride ... PRN; -Pilocarpine 4% Ophth Soln 15 ML Bot EYERT SCH; +Pregabalin 25 MG Cap PO SCH; +Sodium Chloride 0.9% 10 ML Syringe FLUSH PRN; +Sodium Chloride 0.9% 10 ML Syringe FLUSH SCH; +oxyCODONE ER 10 MG TAB.ER PO SCH
[2023-07-12] MEDS ORDERED: Tranexamic Acid 1,000 MG/10 ML Vial ONE (07:45)
[2023-07-12] MEDS ORDERED: Vancomycin 1 GM SDV ONE (07:45)
[2023-07-12] MEDS ORDERED: Ondansetron 4 MG/2 ML SDV ONE (07:50)
[2023-07-12] MEDS ORDERED: ceFAZolin 2 GM Vial ONE (07:50)
[2023-07-12] MEDS ORDERED: Lactated Ringers 1,000 ML ONE (07:50)
[2023-07-12] MEDS ORDERED: Dexamethasone 4 MG/ML 5 ML MDV ONE (07:50)
[2023-07-12] MEDS ORDERED: fentaNYL 100 MCG/2 ML SDV ONE (07:51)
[2023-07-12] MEDS ORDERED: Propofol 200 MG/20 ML SDV ONE (07:51)
[2023-07-12] MEDS ORDERED: Midazolam 1 MG/ML 2 ML SDV ONE (07:51)
[2023-07-12] MEDS ORDERED: Ketamine 500 mg/10 ML MDV ONE (07:52)
[2023-07-12 08:06] LABS: INR 1.05; PROTHROMBIN TIME 11.2 SECONDS (9.7-12.0)
[2023-07-12 08:08] LABS: PTT,PARTIAL THROMBOPLSTIN TIME 27.1 SECONDS (21.7-31.4)
[2023-07-12] MEDS ORDERED: Ketorolac 15 MG/ML SDV ONE (08:21)
[2023-07-12] MEDS ORDERED: Dexmedetomidine 200 MCG/2 ML SDV ONE (08:21)
[2023-07-12] MEDS ORDERED: ePHEDrine 50 MG/ML SDV ONE (09:33)
[2023-07-12] MEDS ORDERED: Ondansetron 4 MG/2 ML SDV IVPUSH PRN (09:41)
[2023-07-12] MEDS ORDERED: ePHEDrine 50 MG/ML SDV IVPUSH PRN (09:41)
[2023-07-12] MEDS ORDERED: HYDROmorphone 0.5 MG/0.5 ML Syringe IVPUSH PRN (09:41)
[2023-07-12] MEDS ORDERED: fentaNYL 100 MCG/2 ML SDV IVPUSH PRN (09:41)
[2023-07-12] MEDS ORDERED: diphenhydrAMINE 50 MG/ML SDV IVPUSH PRN (09:41)
[2023-07-12] MEDS ORDERED: Phenylephrine 10 MG in Sodium Chloride 0.9% 99 ML IV SCH (09:45)
[2023-07-12] MEDS ORDERED: Phenylephrine 1% 10 MG/ML SDV ONE (10:18)
[2023-07-12] MEDS ORDERED: Acetaminophen/HYDROcodone 325-5 MG Tab PO PRN (13:11)
[2023-07-12 15:45] VITALS: BP 145/93; PULSE 60
== END 2023-07-12 15:10 | disposition home or self-care (01) ==
LOC: JD.SDS 07:25
PROVIDERS: ATTEND Orthopaedic Surgery
DX: M16.12 Unilateral primary osteoarthritis, left hip (principal); M25.552 Pain in left hip; R01.1 Cardiac murmur, unspecified; F41.9 Anxiety disorder, unspecified; L25.9 Unspecified contact dermatitis, unspecified cause; F32.A Depression, unspecified; N40.0 Benign prostatic hyperplasia without lower urinary tract symptoms; E03.9 Hypothyroidism, unspecified; F03.90 Unspecified dementia, unspecified severity, without behavioral disturbance, psychotic disturbance, mood disturbance, and anxiety; K21.9 Gastro-esophageal reflux disease without esophagitis; R73.09 Other abnormal glucose; E78.00 Pure hypercholesterolemia, unspecified; I10 Essential (primary) hypertension; E79.0 Hyperuricemia without signs of inflammatory arthritis and tophaceous disease; G35 Multiple sclerosis; N42.9 Disorder of prostate, unspecified; G47.30 Sleep apnea, unspecified; Z79.890 Hormone replacement therapy; Z79.899 Other long term (current) drug therapy; Z98.49 Cataract extraction status, unspecified eye; Z90.89 Acquired absence of other organs; Z91.040 Latex allergy status
CPT/HCPCS: 0055T; 27130; 36415; 73501; 85610; 85730; 86850; 86900; 86901; 97110; 97116; 97161; A9270; C1713; C1776; J0171; J0690; J0697; J1100; J1885; J2270; J2370; J2405; J2704; J3010; J3370; J7030; J7120; 01214; 99100; J2250; J3490

== ENCOUNTER 2025-01-17 14:20 | Emergency (ER) | payer MEDICARE, OTHER | END 2025-01-17 15:05 | disposition left against medical advice (07) | LOC: JD.ED 14:20 | DX: Z53.21 Procedure and treatment not carried out due to patient leaving prior to being seen by health care provider (principal) ==